=== PATIENT | female | born 1965 | race Caucasian/White ===

== ENCOUNTER → 2016-05-04 | Outpatient (CLI) | payer BC ==
[~2016-05-04] MED LIST: CENTTAB12 PO; HYDR12.55 PO; LYBREL
--- NOTE | 2016-05-04 09:39 | REPMRS ---
Patient History The patient states she had a clinical breast exam in 05/08 No known family history of cancer. Taking hormonal contraceptives for 8 years. Digital Woman Screen Mammo: May 04, 2016 - Exam #: [id number] Bilateral CC and MLO view(s) were taken. Technologist: Judy Batista, Technologist Prior study comparison: May 03, 2015, digital woman screen mammo performed at [facility]. May 01, 2014, digital woman screen mammo performed at [facility]. April 26, 2013, digital woman screen mammo performed at [facility]. FINDINGS: The breast tissue is heterogeneously dense. This may lower the sensitivity of mammography. There is a moderate amount of heterogeneously dense fibroglandular tissue which is fairly symmetric. There is no interval development of dominant mass, architectural distortion, or clustered microcalcification typical of malignancy. There has been no change in the appearance of the mammogram from the prior studies. ASSESSMENT: BI-RADS/ACR category 1 mammogram. Negative. Recommendation Routine screening mammogram of both breasts in 1 year (for women over age 40). This mammogram was interpreted with the aid of an FDA-approved computer-aided dectection system. Electronically Signed By: Giuseppe Salinas MD 05/04/16 0981
== END ==
LOC: M WHC 08:31
PROVIDERS: ATTEND Nurse Practitioner Women's Health
DX: Z12.31 Encounter for screening mammogram for malignant neoplasm of breast (principal)

== ENCOUNTER → 2016-05-04 | Outpatient (REF) | payer BC | LOC: M SFHCWAGY 09:15 | PROVIDERS: ATTEND Nurse Practitioner Women's Health | DX: Z12.4 Encounter for screening for malignant neoplasm of cervix (principal) ==

== ENCOUNTER → 2017-05-05 | Outpatient (REF) | payer BC | LOC: M SFHCWAGY 09:21 | DX: Z12.4 Encounter for screening for malignant neoplasm of cervix (principal) | CPT/HCPCS: G0123 ==

== ENCOUNTER → 2017-05-05 | Outpatient (CLI) | payer BC | LOC: M WHC 08:51 | DX: Z12.31 Encounter for screening mammogram for malignant neoplasm of breast (principal) ==

== ENCOUNTER → 2019-07-21 | Outpatient (CLI) | payer BC ==
--- NOTE | 2019-07-21 14:58 | REPMRS ---
Patient History The patient states she had a clinical breast exam in June 2019. Family history of pancreatic cancer in paternal grandfather. Taking hormonal contraceptives for 21 years. Digital Woman Screen Mammo: July 21, 2019 - Exam #: [id number] Bilateral CC and MLO view(s) were taken. Technologist: Regina Daniels, Technologist Prior study comparison: May 13, 2018, bilateral digital woman screen mammo performed at [facility]. May 05, 2017, digital woman screen mammo performed at [facility]. May 04, 2016, digital woman screen mammo performed at [facility]. FINDINGS: The breast tissue is heterogeneously dense. This may lower the sensitivity of mammography. The Volpara volumetric breast density category is: C. There is a moderate amount of heterogeneously dense fibroglandular tissue which is fairly symmetric. There is no interval development of dominant mass, architectural distortion, or grouped microcalcification typical of malignancy. There has been no change in the appearance of the mammogram from the prior studies. 3-D tomosynthesis shows no additional findings. Assessment: BI-RADS/ACR category 1 mammogram. Negative Mammogram. Recommendation Routine screening mammogram of both breasts in 1 year (for women over age 40). This patient's Lifetime Breast Cancer RIsk is estimated at 9.0 %. This mammogram was interpreted with the aid of an FDA-approved computer-aided dectection system. Electronically Signed By: Giuseppe Salinas MD 07/21/19 [id number]
== END ==
LOC: M WHC 13:27
PROVIDERS: ATTEND Nurse Practitioner Women's Health
DX: Z12.31 Encounter for screening mammogram for malignant neoplasm of breast (principal)

== ENCOUNTER → 2019-07-21 | Outpatient (REF) | payer BC | LOC: M SFHCWAGY 17:52 | PROVIDERS: ATTEND Nurse Practitioner Women's Health | DX: Z12.4 Encounter for screening for malignant neoplasm of cervix (principal); R23.4 Changes in skin texture ==

== ENCOUNTER → 2020-06-19 | Outpatient (CLI) | payer BC ==
--- NOTE | 2020-06-19 11:34 | REPMRS ---
Patient History The patient states she had a clinical breast exam in 05/2020. Patient has history of melanoma cancer at age 52. Family history of pancreatic cancer in paternal grandfather. Taking hormonal contraceptives for 22 years. Patient states no breast complaints today. Patient has signed MRS History Sheet. Digital Woman Screen Mammo: June 19, 2020 - Exam #: [id number] Bilateral CC and MLO view(s) were taken. Technologist: Hodan Aguilera, Technologist Prior study comparison: July 21, 2019, bilateral digital woman screen mammo performed at [facility]. May 13, 2018, bilateral digital woman screen mammo performed at [facility]. FINDINGS: The breast tissue is heterogeneously dense. This may lower the sensitivity of mammography. Screening. Digital screening (2D) mammography was performed bilaterally in the CC and MLO projections. Additionally, breast tomosynthesis (3D mammography) was performed bilaterally in the CC and MLO projections. Todays exam was compared to the prior exams(s). By history, the patient has no complaints of a palpable breast abnormality or other significant breast complaints. The breasts are unchanged in size and shape.Once again, dense heterogenous fibroglandular elements are seen bilaterally in a stable appearing pattern but to such a degree that the sensitivity of the mammogram in detecting cancer is decreased. There are no shen-soft tissue densities or spiculated masses. There is no internal architectural distortion. There are no suspicious shen-calcific clusters. Skin thickening or nipple retraction is not present. IMPRESSION: BI-RADS Category 2- Benign Findings(s). There is no evidence of malignant alteration of the breasts. Followup examination recommended in one year. The Volpara volumetric breast density category is C, the breasts are heterogenously dense which may obscure small masses. This mammogram was read with the assistance of [employer],an FDA approved computer aided detection system for mammography. The lifetime Tyrer-Cuzick score is 8.8 % Negative x-ray reports should not delay surgical consultation if a dominant or clinically suspicious mass is present. Not all breast cancers can be identified by mammography. Therefore, we recommend that you continue to perform regular breast self-examination and physical examination and then promptly contact your physician of any concerns or changes. Adenosis and dense breasts may obscure an underlying neoplasm. Assessment: BI-RADS/ACR category 2 mammogram. Benign Findings. Recommendation Routine screening mammogram of both breasts in 1 year. Electronically Signed By: Mckay Garrido DO 06/19/20 1131
== END ==
LOC: M WHC 09:27
PROVIDERS: ATTEND Nurse Practitioner Women's Health
DX: Z12.31 Encounter for screening mammogram for malignant neoplasm of breast (principal); Z79.3 Long term (current) use of hormonal contraceptives; Z85.820 Personal history of malignant melanoma of skin

== ENCOUNTER → 2020-06-19 | Outpatient (REF) | payer BC | LOC: M SFHCWAGY 13:23 | PROVIDERS: ATTEND Nurse Practitioner Women's Health | DX: Z12.4 Encounter for screening for malignant neoplasm of cervix (principal) ==

== ENCOUNTER → 2021-08-13 | Outpatient (REF) | payer BC | LOC: M SFHCWAGY 13:14 | PROVIDERS: ATTEND Specialist | DX: Z12.4 Encounter for screening for malignant neoplasm of cervix (principal) | CPT/HCPCS: 87624; G0123 ==

== ENCOUNTER → 2021-08-13 | Outpatient (CLI) | payer BC | LOC: M WHC 08:41 | PROVIDERS: ATTEND Specialist | DX: Z12.31 Encounter for screening mammogram for malignant neoplasm of breast (principal); Z80.0 Family history of malignant neoplasm of digestive organs ==

== ENCOUNTER → 2022-08-19 | Outpatient (REF) | payer BC | LOC: M SFHCWAGY 13:23 | PROVIDERS: ATTEND Specialist | DX: Z12.4 Encounter for screening for malignant neoplasm of cervix (principal) | CPT/HCPCS: 87624; G0123 ==

== ENCOUNTER → 2022-08-19 | Outpatient (CLI) | payer BC | LOC: M WHC 11:14 | PROVIDERS: ATTEND Specialist | DX: Z12.31 Encounter for screening mammogram for malignant neoplasm of breast (principal) ==

== ENCOUNTER → 2023-12-01 | Outpatient (CLI) | payer BC | LOC: M WHC 08:57 | PROVIDERS: ATTEND Specialist | DX: Z12.31 Encounter for screening mammogram for malignant neoplasm of breast (principal); R92.333 Mammographic heterogeneous density, bilateral breasts ==

== ENCOUNTER → 2023-12-01 | Outpatient (REF) | payer BC ==
[2023-12-06 12:20] LABS: HPV APTIMA Not Detected (Not Detected)
== END ==
LOC: M SFHCWAGY 13:27
PROVIDERS: ATTEND Specialist
DX: Z01.419 Encounter for gynecological examination (general) (routine) without abnormal findings (principal)